=== PATIENT | female | born 1985 | race Caucasian/White ===

== ENCOUNTER 2016-08-10 17:43 | Emergency (ER) | payer BC ==
[2016-08-10 18:12] VITALS: BP 138/74
--- NOTE | 2016-08-10 18:25 | UC ---
Lower Extremity/Ankle HPI - HPI Summary HPI Summary: RIGHT ANKLE INJURY YESTERDAY WHEN PT "ROLLED IT" WHILE WALKING ON THE ICE. 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 Denies . She has rolled her ankle several times but doesnt usually feel pain with it like she did this time. She has an ankle brace that she is wearing here with good supporting boot. She is not interested in PT or crutches, just wants to make sure it's not broken. Denies - has nexplonon. - History of Current Complaint Chief Complaint: UCLowerExtremity Stated Complaint: RT ANKLE PAIN Time Seen by Provider: 08/10/16 18:23 Hx Last Menstrual Period: NEXPLANON - Allergies/Home Medications Allergies/Adverse Reactions: Allergies Allergy/AdvReac Type Severity Reaction Status Date / Time Diphenhydramine Allergy Severe "STOPS MY Verified 08/10/16 18:15 [From Benadryl] BREATHING" Sulfa Drugs Allergy Unknown See Comment Verified 08/10/16 18:15 Bronopol Allergy Rash Verified 08/10/16 18:15 Ethylenediamine Allergy Rash Verified 08/10/16 18:15 Isothiazolinone Chloride Allergy Rash Verified 08/10/16 18:15 Nickel Allergy Rash Verified 08/10/16 18:15 Home Medications: Home Medications Acetaminophen [Extra Strength Acetaminop] 500 mg PO ONCE PRN 08/10/16 [History Confirmed 08/10/16] PMH/Surg Hx/FS Hx/Imm Hx Previously Healthy: Yes Endocrine History Of: Denies: Diabetes, Thyroid Disease Cardiovascular History Of: Reports: Hypertension - TREATED Denies: Cardiac Disorders, Pacemaker/ICD Respiratory History Of: Denies: COPD, Asthma GI/ History Of: Denies: Ulcer, Renal Disease - Surgical History Surgical History: Yes Surgery Procedure, Year, and Place: WISDOM TEETH, 4 MOLES - Family History Known Family History: Positive: Cardiac Disease, Diabetes - Social History Alcohol Use: Occasionally Substance Use Type: None Smoking Status (MU): Never Smoked Tobacco - Immunization History Most Recent Tetanus Shot: thinks was 3 years ago Review of Systems Constitutional: Negative Skin: Negative Eyes: Negative ENT: Negative Respiratory: Negative Cardiovascular: Negative Gastrointestinal: Negative Genitourinary: Negative Motor: Negative Neurovascular: Negative Musculoskeletal: Other: - rt ankle pain. Neurological: Negative Psychological: Negative All Other Systems Reviewed And Are Negative: Yes Physical Exam Triage Information Reviewed: Yes Appearance: Well-Appearing, No Pain Distress, Well-Nourished Vital Signs: Initial Vital Signs Temp 98 F 08/10/16 18:05 Pulse 91 08/10/16 18:05 Resp 16 08/10/16 18:05 BP 138/74 08/10/16 18:05 Pulse Ox 99 08/10/16 18:05 Vital Signs Reviewed: Yes Eye Exam: Normal ENT Exam: Normal Dental Exam: Normal Neck exam: Normal Respiratory Exam: Normal Respiratory: Positive: Lungs clear, Normal breath sounds Cardiovascular Exam: Normal Cardiovascular: Positive: RRR, No Murmur, Pulses Normal, Brisk Capillary Refill Abdominal Exam: Normal Abdomen Description: Positive: Nontender, Soft Musculoskeletal: Positive: Other: - rt ankle with mild lia-lateral swelling and tenderness. no bruising. mortise intact. CR brisk. 5/5 strength in dorsi and plantar flexion against resistance. sensation intact. + 2 DP/PT pulses b/l. Gait shows mild limp. Neurological Exam: Normal Psychological Exam: Normal Skin Exam: Normal Lower Extremity Course/Dx - Course Course Of Treatment: Rt ankle xray is neg. Declines PT, crutches or other device. - Differential Dx/Diagnosis Differential Diagnosis/HQI/PQRI: Contusion, Fracture (Closed), Sprain, Strain Provider Diagnoses: Rt ankle sprain. Discharge - Discharge Plan Condition: Stable Disposition: HOME Patient Education Materials: Ankle Sprain (ED), Ankle Exercises (GEN) Referrals: Mary Bey DO [Primary Care Provider] - Additional Instructions: We have given you a list of PCPs in the area that you can establish with, or you can see your PCP in [place] as well. Keep wearing your brace, ice and rest and ibuprofen short term or tylenol. You should reconsider PT especially if symptoms worsen or persist.
--- NOTE | 2016-08-10 18:59 | RAD ---
INDICATION: Right ankle injury. TECHNIQUE: 3 views of the right ankle were obtained. FINDINGS: The bones are in normal alignment. No fracture is seen. Joint spaces appear maintained. IMPRESSION: NO EVIDENCE FOR FRACTURE.
== END 2016-08-10 19:32 | disposition home or self-care (01) ==
LOC: UCCORT 17:43
DX: S93.401A Sprain of unspecified ligament of right ankle, initial encounter (principal); X50.1XXA Overexertion from prolonged static or awkward postures, initial encounter; Y93.9 Activity, unspecified; Y92.9 Unspecified place or not applicable; Z88.2 Allergy status to sulfonamides
CPT/HCPCS: 99211; G0463

== ENCOUNTER 2017-07-13 15:54 | Emergency (ER) | payer BC ==
[2017-07-13 17:49] VITALS: BP 137/79
--- NOTE | 2017-07-13 18:47 | UC ---
Respiratory Complaint HPI - HPI Summary HPI Summary: 32 YO FEMALE WITH COUGH X WEEKS INITIALLY NASAL/POST NASAL DRIP NO IN CHEST WITH PRODUCTIVE COUGH X DAYS (2-3) NO F/C NO CP OR SOB - History of Current Complaint Chief Complaint: UCRespiratory Stated Complaint: RESPIRATORY COMPLAINT Time Seen by Provider: 07/13/17 18:41 Hx Obtained From: Patient Hx Last Menstrual Period: n/a Onset/Duration: Gradual Onset, Lasting Weeks Timing: Constant Severity Initially: Mild Severity Currently: Moderate Pain Intensity: 0 Pain Scale Used: 0-10 Numeric Character: Cough: Productive Associated Signs And Symptoms: Positive: Nasal Congestion, Sinus Discomfort - Allergies/Home Medications Allergies/Adverse Reactions: Allergies Allergy/AdvReac Type Severity Reaction Status Date / Time MS Diphenhydramine Allergy Severe "STOPS MY Verified 08/10/16 18:15 [From Benadryl] BREATHING" MS Sulfa Drugs [Sulfa Drugs] Allergy Unknown See Comment Verified 08/10/16 18:15 MS Bronopol [Bronopol] Allergy Rash Verified 08/10/16 18:15 MS Ethylenediamine Allergy Rash Verified 08/10/16 18:15 [Ethylenediamine] MS Isothiazolinone Chloride Allergy Rash Verified 08/10/16 18:15 [Isothiazolinone Chloride] MS Nickel [Nickel] Allergy Rash Verified 08/10/16 18:15 chloromethylisothiazolinone Allergy Rash Uncoded 07/13/17 17:38 environmental Allergy Congestion Uncoded 07/13/17 17:38 Home Medications: Home Medications Cholecalciferol TAB* [Vitamin D TAB*] 400 unit PO DAILY 07/13/17 [History Confirmed 07/13/17] Cyanocobalamin TAB* [Vitamin B12 TAB*] 1,000 mcg PO DAILY 07/13/17 [History Confirmed 07/13/17] PMH/Surg Hx/FS Hx/Imm Hx Previously Healthy: Yes Respiratory History: Bronchitis - Surgical History Surgical History: Yes Surgery Procedure, Year, and Place: WISDOM TEETH, 4 MOLES - Family History Known Family History: Positive: Cardiac Disease, Diabetes - Social History Alcohol Use: Occasionally Substance Use Type: None Smoking Status (MU): Former Smoker When Did the Patient Quit Smoking/Using Tobacco: age 21 - Immunization History Most Recent Tetanus Shot: thinks was 3 years ago Review of Systems Constitutional: Negative Skin: Negative Eyes: Negative ENT: Nasal Discharge Respiratory: Cough Cardiovascular: Negative Gastrointestinal: Negative Genitourinary: Negative Motor: Negative Neurovascular: Negative Musculoskeletal: Negative Neurological: Negative Psychological: Negative Is Patient Immunocompromised?: No All Other Systems Reviewed And Are Negative: Yes Physical Exam Triage Information Reviewed: Yes Appearance: Well-Appearing, No Pain Distress, Well-Nourished Vital Signs: Initial Vital Signs Temp 99 F 07/13/17 17:41 Pulse 86 07/13/17 17:41 Resp 18 07/13/17 17:41 BP 137/79 07/13/17 17:41 Pulse Ox 100 07/13/17 17:41 Vital Signs Reviewed: Yes Eyes: Positive: Conjunctiva Clear ENT: Positive: Hearing grossly normal, Nasal congestion, TMs normal, Uvula midline. Negative: Tonsillar swelling, Tonsillar exudate, Trismus, Muffled voice, Hoarse voice Neck: Positive: Supple, Nontender, No Lymphadenopathy Respiratory: Positive: Lungs clear, Normal breath sounds, No respiratory distress, No accessory muscle use Cardiovascular: Positive: RRR, No Murmur Musculoskeletal: Positive: ROM Intact, No Edema Neurological Exam: Normal Neurological: Positive: Alert Psychological Exam: Normal Skin Exam: Normal UC Diagnostic Evaluation - Laboratory O2 Sat by Pulse Oximetry: 100 - NORMAL/NOT HYPOXIC Respiratory Course/Dx - Differential Dx/Diagnosis Provider Diagnoses: ACUTE BRONCHTIS Discharge - Discharge Plan Condition: Stable Disposition: HOME Prescriptions: Amoxicillin PO (*) [Amoxicillin 875 MG (*)] 875 mg PO BID #20 tab Patient Education Materials: Acute Bronchitis (ED) Referrals: No Primary Care Phys,NOPCP [Primary Care Provider] - Additional Instructions: RECHECK LATE NEXT WEEK IF NOT BETTER
== END 2017-07-13 18:54 | disposition home or self-care (01) ==
LOC: UCCORT 15:54
DX: J20.9 Acute bronchitis, unspecified (principal); Z87.891 Personal history of nicotine dependence
CPT/HCPCS: 99212; G0463

== ENCOUNTER 2018-04-05 09:54 | Emergency (ER) | payer SELFPAY ==
[2018-04-05 10:04] VITALS: BP 136/93
--- NOTE | 2018-04-05 11:16 | UC ---
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 - History Of Current Complaint Chief Complaint: UCUpperExtremity Stated Complaint: HAND INJURY Time Seen by Provider: 04/05/18 11:09 Hx Obtained From: Patient Hx Last Menstrual Period: depo ?: No Pain Intensity: 3 - Allergies/Home Medications Allergies/Adverse Reactions: Allergies Allergy/AdvReac Type Severity Reaction Status Date / Time bronopol Allergy Rash Verified 04/05/18 10:07 diphenhydramine Allergy stopped Verified 04/05/18 10:05 [From Benadryl] btreathing ethylenediamine Allergy Rash Verified 04/05/18 10:09 nickel Allergy Rash Verified 04/05/18 10:09 Sulfa (Sulfonamide Allergy Rash Verified 04/05/18 10:06 Antibiotics) chloromethylisothiazolinone Allergy Rash Uncoded 07/13/17 17:38 environmental Allergy Congestion Uncoded 07/13/17 17:38 isothialoline chloride Allergy Rash Uncoded 04/05/18 10:09 PMH/Surg Hx/FS Hx/Imm Hx - Surgical History Surgical History: Yes Surgery Procedure, Year, and Place: WISDOM TEETH, 4 MOLES - Family History Known Family History: Positive: Cardiac Disease, Diabetes - Social History Alcohol Use: Occasionally Substance Use Type: None Smoking Status (MU): Former Smoker When Did the Patient Quit Smoking/Using Tobacco: age 21 - Immunization History Most Recent Tetanus Shot: thinks was 3 years ago Physical Exam - Summary Physical Exam Summary: Vital Signs Reviewed: Yes General: Well developed well nourished obese female sitting in the examining table w/o any apparent distress Eyes: Positive: Conjunctiva Clear - PERRLA, EOMI ENT: Positive: Normal ENT inspection, Hearing grossly normal, Pharynx normal, TMs normal Neck: Positive: Supple, Nontender, No Lymphadenopathy Respiratory: Positive: Chest non-tender, Lungs clear, Normal breath sounds, No respiratory distress Cardiovascular: Positive: RRR, No Murmur, Pulses Normal, Brisk Capillary Refill Abdomen Description: Positive: Nontender, No Organomegaly, Soft. Negative: CVA Tenderness (R), CVA Tenderness (L) Bowel Sounds: Positive: Present Musculoskeletal: Positive: Strength Intact, No Edema, Other: - Hand/Fingers: the L hand is without obvious asymmetry or deformity when compared to the R hand. mild swelling around dorsal side of #5 metacarpal and MCPJ, Pt keeps #5 phalanx in abducted position, but can adduct phalanx, no erythema, atrophy, or obvious deformity. No surface trauma, open wounds,bony deformity. Normal cascade of fingers. Normal flexion and extension of fingers, except for #5 phalanx due to pain. FDS and FDP intact against resistance. No focal fullness, throbbing pain, swelling of finger tip. Pulses and capillary refill WNL, positive reflexes and sensation intact Neurological Exam: Normal Psychological Exam: Normal Skin Exam: Normal Triage Information Reviewed: Yes Vital Signs: Initial Vital Signs Temp 98 F 04/05/18 10:00 Pulse 79 04/05/18 10:00 Resp 16 04/05/18 10:00 BP 136/93 04/05/18 10:00 Pulse Ox 100 04/05/18 10:00 Hand/Wrist Course/Dx - Course Course Of Treatment: Rt hand X-ray ordered: impression: There was no fracture , dislocation, soft tissue swelling or FB noted. Probably RT Hand sprain. Pt's hand immobilized with a cock-up splint. Pt advised RICE and take Motrin PO for pain. F/u with Orthopedic DR Blanchard if not improvement of symptoms. Pt understood and agreed with D/C instructions. - Differential Dx/Diagnosis Differential Diagnosis/HQI/PQRI: Contusion, Fracture, Sprain, Strain, Tendonitis , Tenosynovitis Provider Diagnoses: 1- RT hand pain and swelling s/p heavy lifting. 2- RT hand sprain. 3- Uncontrolled HTN Discharge - Sign-Out/Discharge Documenting (check all that apply): Patient Departure - D/c home All imaging exams completed and their final reports reviewed: Yes - Discharge Plan Condition: Stable Disposition: HOME Prescriptions: Ibuprofen TAB* [Motrin TAB* 600 MG] 600 mg PO Q6H PRN #30 tab PRN Reason: Pain Patient Education Materials: Hand Sprain (ED), Low-Sodium Diet (ED) Referrals: [facility] [Outside] - 1 Week Bruce Blanchard MD [Medical Doctor] - 1 Week Additional Instructions: 1-Please take medications as directed to alleviate pain and swelling. 2-Please apply ice, keep your hand immobilized with the splint. Avoid heavy lifting or strenuous exercise. 3- Please f/u with Orthopedic Dr Bruce Blanchard or your PCP in 1 week is not improvement of symptoms for further evaluation and treatment. 4- Your BP is elevated today. please decrease salt in your diet, monitor BP and if it continues to be elevated please f/u with your PCP for further management - Billing Disposition and Condition Condition: STABLE Disposition: Home
== END 2018-04-05 12:17 | disposition home or self-care (01) ==
LOC: UCEAST 09:54
DX: S63.91XA Sprain of unspecified part of right wrist and hand, initial encounter (principal); M79.641 Pain in right hand; M79.89 Other specified soft tissue disorders; Z88.8 Allergy status to other drugs, medicaments and biological substances; Z88.2 Allergy status to sulfonamides; Z87.891 Personal history of nicotine dependence; X50.0XXA Overexertion from strenuous movement or load, initial encounter; Y92.9 Unspecified place or not applicable
CPT/HCPCS: 99213; G0463

== ENCOUNTER 2018-11-12 18:03 | Emergency (ER) | payer OTHER ==
[2018-11-12 18:28] VITALS: BP 135/94
[2018-11-12] MEDS ORDERED: Amoxicillin/Clavulanate TAB* 875 MG PO ONE (18:45)
--- NOTE | 2018-11-12 18:50 | ED ---
Bite Injury/Animal - HPI Summary HPI Summary: 33 yr old female with the complaint of dog bite to the back of the right hand. she states her two dogs were fighting over cheese and she tried to separate them and one of them bit her on the back of the right hand. The patient states that the back of the hand is red and getting redness to the back of the right hand now with some pus drainage. - History of Current Complaint Chief Complaint: UCBiteInjury Stated Complaint: DOG BITE RIGHT HAND Time Seen by Provider: 11/12/18 18:38 Hx Last Menstrual Period: depo Pain Intensity: 0 - Allergies/Home Medications Allergies/Adverse Reactions: Allergies Allergy/AdvReac Type Severity Reaction Status Date / Time bronopol Allergy Rash Verified 11/12/18 18:29 diphenhydramine Allergy stopped Verified 11/12/18 18:29 [From Benadryl] btreathing ethylenediamine Allergy Rash Verified 11/12/18 18:29 nickel Allergy Rash Verified 11/12/18 18:29 Sulfa (Sulfonamide Allergy Rash Verified 11/12/18 18:29 Antibiotics) chloromethylisothiazolinone Allergy Rash Uncoded 11/12/18 18:29 environmental Allergy Congestion Uncoded 11/12/18 18:29 isothialoline chloride Allergy Rash Uncoded 11/12/18 18:29 Home Medications: Home Medications Fexofenadine (NF) [Andie 180 (NF)] 180 mg PO DAILY 11/12/18 [History Confirmed 11/12/18] Hydrochlorothiazide TAB* [Hydrodiuril TAB*] 25 mg PO DAILY 11/12/18 [History Confirmed 11/12/18] PMH/Surg Hx/FS Hx/Imm Hx Endocrine/Hematology History: Denies: Hx Diabetes, Hx Thyroid Disease Cardiovascular History: Reports: Hx Hypertension - TREATED Denies: Hx Pacemaker/ICD Respiratory History: Denies: Hx Asthma, Hx Chronic Obstructive Pulmonary Disease (COPD) GI History: Denies: Hx Ulcer History: Denies: Hx Renal Disease Sensory History: Denies: Hx Hearing Aid Psychiatric History: Denies: Hx Panic Disorder - Surgical History Surgery Procedure, Year, and Place: WISDOM TEETH, 4 MOLES Infectious Disease History: No Infectious Disease History: Denies: Hx Hepatitis, Hx Human Immunodeficiency Virus (HIV), Traveled Outside the [place] in Last 30 Days - Family History Known Family History: Positive: Cardiac Disease, Hypertension, Diabetes - Social History Occupation: Employed Full-time Lives: With Family Alcohol Use: Occasionally Substance Use Type: Reports: None Smoking Status (MU): Former Smoker Review of Systems Negative: Fever, Chills Positive: Other - dog bite right hand All Other Systems Reviewed And Are Negative: Yes Physical Exam Triage Information Reviewed: Yes Vital Signs On Initial Exam: Initial Vitals Temp Pulse Resp BP Pulse Ox 98.1 F 88 16 135/94 100 11/12/18 18:23 11/12/18 18:23 11/12/18 18:23 11/12/18 18:23 11/12/18 18:23 Vital Signs Reviewed: Yes Appearance: Positive: Well-Appearing, No Pain Distress Skin: Positive: Other - puncture wound back of right hand that is closed now and appears about two days old. She has some erythema to the back of the hand. Head/Face: Positive: Normal Head/Face Inspection Eyes: Positive: EOMI ENT: Positive: Normal ENT inspection Respiratory/Lung Sounds: Positive: Other - normal effort Cardiovascular: Positive: Pulses are Symmetrical in both Upper and Lower Extremities Abdomen Description: Negative: Distended Musculoskeletal: Positive: Other - neuro vasc intact right hand with intact cardiac sonographer and normal tendon function. Neurological: Positive: Sensory/Motor Intact, Alert, Oriented to Person Place, Time Psychiatric: Positive: Normal - [place] Coma Scale Best Eye Response: 4 - Spontaneous Best Motor Response: 6 - Obeys Commands Best Verbal Response: 5 - Oriented Coma Scale Total: 15 Procedures - Splinting Right Upper Extremity Location: right hand, wrist and forearm Hand-Made Type: orthoglass Splint: volar Pre-Proc Neuro Vasc Exam: normal Post-Proc Neuro Vasc Exam: normal Diagnostics - Vital Signs Vital Signs Temp Pulse Resp BP Pulse Ox 11/12/18 18:23 98.1 F 88 16 135/94 100 - Laboratory Lab Statement: Any lab studies that have been ordered have been reviewed, and results considered in the medical decision making process. - Radiology right hand Radiology Interpretation Completed By: ED Physician - base of 3rd metacarpal fx. Re-Evaluation - Re-Evaluation First Eval Re-Evaluation Time: 19:06 Change: Unchanged Comment: Dr Fritz from hand surgery called for consult. Bite Injury Course/Dx - Course Course Of Treatment: Case DW Dr Fritz who recommends, augmentin, volar splint and follow up with her tomorrow. Splint applied by me, and please see the proceedure note. - Diagnoses Provider Diagnosis: Dog bite of right hand with infection, Nondisplaced fracture, Closed fracture of 3rd metacarpal Discharge - Sign-Out/Discharge Documenting (check all that apply): Patient Departure All imaging exams completed and their final reports reviewed: No - Discharge Plan Condition: Good Disposition: HOME Prescriptions: Amoxicillin/Clavulanate TAB* [Augmentin TAB 875*] 875 mg PO BID #20 tab Patient Education Materials: Animal Bite (ED), Hand Fracture (ED), Hypertension (ED) Referrals: Nora Fritz MD [Medical Doctor] - 1 Day Sb Clark MD [Primary Care Provider] - 2 Days - Billing Disposition and Condition Condition: GOOD Disposition: Home
--- NOTE | 2018-11-13 07:59 | UC ---
- Progress Note Progress Note: Patient already scheduled to follow up with Dr. ramirez. Hand in splint on initial encounter. - EKG/XRAY/CT Xray Comments: right hand - possible nondisplaced fracture base of third metacarpal Course/Dx - Diagnoses Provider Diagnoses: Dog bite of right hand with infection, Nondisplaced fracture, Closed fracture of 3rd metacarpal Discharge - Sign-Out/Discharge Documenting (check all that apply): Post-Discharge Follow Up All imaging exams completed and their final reports reviewed: Yes - Discharge Plan Condition: Good Disposition: HOME Prescriptions: Amoxicillin/Clavulanate TAB* [Augmentin TAB 875*] 875 mg PO BID #20 tab Patient Education Materials: Animal Bite (ED), Hand Fracture (ED), Hypertension (ED) Forms: *Work Release Referrals: Sb Clark MD [Primary Care Provider] - 2 Days Nora Ramirez MD [Medical Doctor] - 1 Day - Billing Disposition and Condition Condition: GOOD Disposition: Home
== END 2018-11-12 19:39 | disposition home or self-care (01) ==
LOC: UCCORT 18:03
DX: S61.451A Open bite of right hand, initial encounter (principal); L08.9 Local infection of the skin and subcutaneous tissue, unspecified; S62.342A Nondisplaced fracture of base of third metacarpal bone, right hand, initial encounter for closed fracture; W54.0XXA Bitten by dog, initial encounter; Y93.89 Activity, other specified; Y92.9 Unspecified place or not applicable; I10 Essential (primary) hypertension; Z87.891 Personal history of nicotine dependence; Z88.2 Allergy status to sulfonamides
CPT/HCPCS: 26600; 99212; A9270-GY; G0463